=== PATIENT | male | born 2000 | race Caucasian/White ===

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

== ENCOUNTER 2018-01-28 06:15 | Emergency (ER) | payer BC ==
[2018-01-28] MEDS ORDERED: diphenhydrAMINE 50 MG CAP PO STA (08:09)
--- NOTE | 2018-01-28 08:27 | XR ---
Skull series HISTORY: Epistaxis, pain 2 views of the skull Bone mineralization is maintained. Paranasal sinuses are well aerated. No evident depressed skull fra cture. Impacted mandibular wisdom teeth noted. Orbits unremarkable as seen. IMPRESSION: Normal skull.
--- NOTE | 2018-01-28 08:28 | ED ---
General Adult HPI - General Chief complaint: ENT Stated complaint: nose bleed Time Seen by Provider: 01/28/18 07:37 Source: patient, family, RN notes reviewed, old records reviewed Mode of arrival: ambulatory Limitations: no limitations - History of Present Illness Initial comments: This is a 17-year-old male to the ER for evaluation. Patient presents to ER today for evaluation regarding nosebleed, patient believes he has bleeding of the brain. Patient suffers from psychosis. Mental health issues. Patient with long-standing mental health floor. Patient's father brings patient in for evaluation, is unclear why patient is in the emergency room, patient is complaining that he does have bleeding in his brain. Patient denies any headache currently. No nosebleed currently. No recent injury or trauma. - Related Data Previous Rx's Medication Instructions Recorded ARIPiprazole [Abilify] 15 mg PO DAILY #10 tab 12/01/17 Allergies Allergy/AdvReac Type Severity Reaction Status Date / Time No Known Allergies Allergy Verified 01/28/18 08:12 Review of Systems ROS Statement: Those systems with pertinent positive or pertinent negative responses have been documented in the HPI. ROS Other: All systems not noted in ROS Statement are negative. Past Medical History Past Medical History: Unable to Obtain History of Any Multi-Drug Resistant Organisms: None Reported Past Surgical History: Unable to Obtain Past Psychological History: No Psychological Hx Reported Smoking Status: Never smoker Past Alcohol Use History: None Reported Past Drug Use History: None Reported General Exam Limitations: no limitations General appearance: alert, in no apparent distress, anxious Head exam: Present: atraumatic, normocephalic, normal inspection Eye exam: Present: normal appearance, PERRL, EOMI. Absent: scleral icterus, conjunctival injection, periorbital swelling ENT exam: Present: normal exam, mucous membranes moist Neck exam: Present: normal inspection. Absent: tenderness, meningismus, lymphadenopathy Respiratory exam: Present: normal lung sounds bilaterally. Absent: respiratory distress, wheezes, rales, rhonchi, stridor Cardiovascular Exam: Present: regular rate, normal rhythm, normal heart sounds. Absent: systolic murmur, diastolic murmur, rubs, gallop, clicks GI/Abdominal exam: Present: soft, normal bowel sounds. Absent: distended, tenderness, guarding, rebound, rigid Extremities exam: Present: normal inspection, full ROM, normal capillary refill. Absent: tenderness, pedal edema, joint swelling, calf tenderness Back exam: Present: normal inspection Neurological exam: Present: alert, oriented X3, CN II-XII intact Psychiatric exam: Present: normal affect, normal mood Skin exam: Present: warm, dry, intact, normal color. Absent: rash Course Vital Signs 01/28/18 06:20 Temperature 98.6 F Pulse Rate 102 H Respiratory 20 Rate Blood Pressure 156/83 O2 Sat by Pulse 99 Oximetry - Reevaluation(s) Reevaluation #1: 01/28/18 08:27 Discussed with father goal for evaluation today, questions are answered and plan and treatment plan are discussed Medical Decision Making - Medical Decision Making 17-year-old male the ER for evaluation of nosebleed, no current nosebleed seen, patient also complaining of bleeding of the brain, patient and family reassured. Patient can be discharged home - Radiology Data Radiology results: report reviewed (Skull x-rays negative), image reviewed Disposition Clinical Impression: Paranoid delusion, Epistaxis Disposition: HOME SELF-CARE Condition: Good Instructions: Nosebleed (ED) Is patient prescribed a controlled substance at d/c from ED?: No Referrals: Felicity Sosa DO [Primary Care Provider] - 1-2 days
[2018-01-28 09:05] VITALS: BP 130/70; PULSE 78; RESP 16; TEMP 98.8
== END 2018-01-28 09:04 | disposition home or self-care (01) ==
LOC: EC 06:15
DX: F22 Delusional disorders (principal); R04.0 Epistaxis
CPT/HCPCS: 70250; 99284

== ENCOUNTER 2019-10-10 03:31 | Inpatient (IN) | payer BC ==
[2019-10-10 04:02] LABS: Basophils % (A) 0 %; Eosinophils # (A) 0.3 k/uL (0-0.7); Eosinophils % (A) 3 %; HCT 48.4 % (39.0-53.0); HGB 16.2 gm/dL (13.0-17.5); Lymphocytes # (A) 2.7 k/uL (1.0-4.8); Lymphocytes % (A) 26 %; MCHC 33.5 g/dL (31.0-37.0); MCV 92.4 fL (80.0-100.0); Mean Platelet Volume 7.3; Monocytes # (A) 0.5 k/uL (0-1.0); Monocytes % (A) 5 %; Neutrophils # (A) 6.9 k/uL (1.3-7.7); Neutrophils % (A) 66 %; Platelet Count 285 k/uL (150-450); RBC 5.24 m/uL (4.30-5.90); RDW 12.1 % (11.5-15.5); WBC 10.6 k/uL (3.8-10.6)
[2019-10-10 04:16] LABS: ALT 37 U/L (4-49); AST 34 U/L (17-59); Acetaminophen <10.0 ug/mL; African American GFR (CKD) >90 (>60 ml/min/1.73 sqM); Albumin 5.2 g/dL (3.5-5.0); Alkaline Phosphatase 56 U/L (38-126); Anion Gap 10 mmol/L; Blood Urea Nitrogen 17 mg/dL (9-20); Carbon Dioxide 26 mmol/L (22-30); Chloride 102 mmol/L (98-107); Glucose 93 mg/dL (74-99); Non-African American GFR(CKD) >90 (>60 ml/min/1.73 sqM); Potassium 3.6 mmol/L (3.5-5.1); Salicylate <1.0 mg/dL; Sodium 138 mmol/L (137-145); Total Bilirubin 0.5 mg/dL (0.2-1.3); Total Protein 8.1 g/dL (6.3-8.2)
[2019-10-10] MEDS ORDERED: NICOTINE 14MG/24HR PATCH TRANSDERM STA (05:21)
--- NOTE | 2019-10-10 05:28 | ED ---
General Adult HPI - General Chief complaint: Anxiety Stated complaint: Anxiety Time Seen by Provider: 10/10/19 03:41 Source: patient, EMS Mode of arrival: EMS Limitations: altered mental status (Psychiatric illness) - History of Present Illness Initial comments: Luciano is a 19 yo male with a psychiatric history who presents to the ER today via EMS reporting that he is experiencing brain trauma. Patient states that he can't explain. Patient states that he is having severe brain trauma denies any head injury or headache. - Related Data Previous Rx's Medication Instructions Recorded ARIPiprazole [Abilify] 15 mg PO DAILY #10 tab 12/01/17 Allergies Allergy/AdvReac Type Severity Reaction Status Date / Time No Known Allergies Allergy Verified 01/28/18 08:12 Review of Systems ROS Statement: Those systems with pertinent positive or pertinent negative responses have been documented in the HPI. ROS Other: All systems not noted in ROS Statement are negative. Past Medical History Past Medical History: Unable to Obtain History of Any Multi-Drug Resistant Organisms: None Reported Past Surgical History: Unable to Obtain Past Psychological History: Unable to Obtain Smoking Status: Never smoker Past Alcohol Use History: None Reported Past Drug Use History: None Reported General Exam - General Exam Comments Initial Comments: Physical Exam GENERAL: Patient is well-developed and well-nourished. Patient is nontoxic and well-hydrated and is in no distress. HENT: Normocephalic, Atraumatic. EYES: PERRL, EOMI PULMONARY: Unlabored respirations. CARDIOVASCULAR: RRR Warm and well perfused extremities ABDOMEN: Non-distended SKIN: No rashes or bruising : Deferred NEUROLOGIC: Alert and oriented Normal speech Normal gait MUSCULOSKELETAL: Moving all extremities with no apparent injury PSYCHIATRIC: Appears paranoid, appears to be reacting to internal stimuli, exhibiting thought blocking Limitations: no limitations Course Vital Signs 10/10/19 03:32 Temperature 96.7 F L Pulse Rate 93 Respiratory 18 Rate Blood Pressure 129/91 O2 Sat by Pulse 99 Oximetry Medical Decision Making - Medical Decision Making The patient was seen and evaluated history was obtained from EMS and the patient EMS reports the PD was on scene when the patient called 911 asking for help, PD seemed to be familiar with the patient and reported that he seemed off from his baseline Patient was calm and cooperative but seemed paranoid, history was limited by patient's psychiatric illness Physical exam unremarkable Patient was medically cleared for evaluation by EPS who were able to evaluated bedside. Patient was petitioned by the EPS nurse, I completed a psychiatric certification patient will be admitted the [facility] - Lab Data Result diagrams: 10/10/19 03:54 10/10/19 03:54 Lab Results 10/10/19 10/10/19 Range/Units 03:54 03:54 WBC 10.6 (3.8-10.6) k/uL RBC 5.24 (4.30-5.90) m/uL Hgb 16.2 (13.0-17.5) gm/dL Hct 48.4 (39.0-53.0) % MCV 92.4 (80.0-100.0) fL MCH 31.0 (25.0-35.0) pg MCHC 33.5 (31.0-37.0) g/dL RDW 12.1 (11.5-15.5) % Plt Count 285 (150-450) k/uL Neutrophils % 66 % Lymphocytes % 26 % Monocytes % 5 % Eosinophils % 3 % Basophils % 0 % Neutrophils # 6.9 (1.3-7.7) k/uL Lymphocytes # 2.7 (1.0-4.8) k/uL Monocytes # 0.5 (0-1.0) k/uL Eosinophils # 0.3 (0-0.7) k/uL Basophils # 0.0 (0-0.2) k/uL Sodium 138 (137-145) mmol/L Potassium 3.6 (3.5-5.1) mmol/L Chloride 102 (98-107) mmol/L Carbon Dioxide 26 (22-30) mmol/L Anion Gap 10 mmol/L BUN 17 (9-20) mg/dL Creatinine 0.81 (0.66-1.25) mg/dL Est GFR (CKD-EPI)AfAm >90 (>60 ml/min/1.73 sqM) Est GFR (CKD-EPI)NonAf >90 (>60 ml/min/1.73 sqM) Glucose 93 (74-99) mg/dL Calcium 10.0 (8.4-10.2) mg/dL Total Bilirubin 0.5 (0.2-1.3) mg/dL AST 34 (17-59) U/L ALT 37 (4-49) U/L Alkaline Phosphatase 56 (38-126) U/L Total Protein 8.1 (6.3-8.2) g/dL Albumin 5.2 H (3.5-5.0) g/dL Salicylates <1.0 mg/dL Acetaminophen <10.0 ug/mL Disposition Clinical Impression: Paranoid delusion Disposition: TRANSFER TO PSYCH HOSP/UNIT Condition: Serious Is patient prescribed a controlled substance at d/c from ED?: No Referrals: Felicity Sosa DO [Primary Care Provider] - 1-2 days
[2019-10-10] MEDS ORDERED: LORazepam 1 MG TAB PO PRN (05:44)
[2019-10-10] MEDS ORDERED: MAG HYDROX/AL HYDROX/SIMETH 30 ML CUP PO PRN (05:44)
[2019-10-10] MEDS ORDERED: ZIPRASIDONE 20 MG VIAL IM PRN (05:44)
[2019-10-10] MEDS ORDERED: ACETAMINOPHEN TAB 325 MG TAB PO PRN (05:44)
[2019-10-10] MEDS ORDERED: MAGNESIUM HYDROXIDE 2,400 MG/10 ML CUP PO PRN (05:44)
[2019-10-10] MEDS: NICOTINE 21MG/24HR PATCH TRANSDERM SCH (07:42)
[2019-10-10 08:07] LABS: Cholesterol 167 mg/dL (<200); HDL Cholesterol 42 mg/dL (40-60); LDL Cholesterol,Calculated 100 mg/dL (0-99); Triglycerides 123 mg/dL (<150)
[2019-10-10 08:11] LABS: Bilirubin,Unconjugated 0.5 mg/dL (0.0-1.1)
--- NOTE | 2019-10-10 12:02 | CT ---
EXAMINATION TYPE: CT brain wo con DATE OF EXAM: 10/10/2019 COMPARISON: NONE HISTORY: Fall, headache. CT DLP: 1047.4 mGycm. Automated Exposure Control for Dose Reduction was Utilized. TECHNIQUE: CT scan of the head is performed without contrast. FINDINGS: There is no acute intracranial hemorrhage, mass effect, or midline shift identified. The ventricles and sulci are within normal limits in size. The globes are intact. 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 Remaining visualized paranasal sinuses an d mastoid air cells are well aerated although the left mastoid air cells are aplastic. IMPRESSION: No acute intracranial hemorrhage, mass effect, or midline shift is seen.
[2019-10-10] MEDS: ARIPiprazole 15 MG TAB PO SCH (12:18)
--- NOTE | 2019-10-10 13:29 | P.HP ---
Psychiatric H&P - . H&P Date: 10/10/19 History & Physical: Allergies Allergy/AdvReac Type Severity Reaction Status Date / Time No Known Allergies Allergy Verified 01/28/18 08:12 Vital Signs Temp 97.3 F L 10/10/19 06:45 Pulse 91 10/10/19 06:45 Resp 18 10/10/19 06:45 BP 136/91 10/10/19 06:45 Pulse Ox 99 10/10/19 06:45 Intake & Output 10/09/19 10/10/19 10/10/19 18:59 06:59 18:59 Weight 64.093 kg Laboratory Last Values WBC 10.6 k/uL (3.8-10.6) 10/10/19 03:54 RBC 5.24 m/uL (4.30-5.90) 10/10/19 03:54 Hgb 16.2 gm/dL (13.0-17.5) 10/10/19 03:54 Hct 48.4 % (39.0-53.0) 10/10/19 03:54 MCV 92.4 fL (80.0-100.0) 10/10/19 03:54 MCH 31.0 pg (25.0-35.0) 10/10/19 03:54 MCHC 33.5 g/dL (31.0-37.0) 10/10/19 03:54 RDW 12.1 % (11.5-15.5) 10/10/19 03:54 Plt Count 285 k/uL (150-450) 10/10/19 03:54 Neutrophils % 66 % 10/10/19 03:54 Lymphocytes % 26 % 10/10/19 03:54 Monocytes % 5 % 10/10/19 03:54 Eosinophils % 3 % 10/10/19 03:54 Basophils % 0 % 10/10/19 03:54 Neutrophils # 6.9 k/uL (1.3-7.7) 10/10/19 03:54 Lymphocytes # 2.7 k/uL (1.0-4.8) 10/10/19 03:54 Monocytes # 0.5 k/uL (0-1.0) 10/10/19 03:54 Eosinophils # 0.3 k/uL (0-0.7) 10/10/19 03:54 Basophils # 0.0 k/uL (0-0.2) 10/10/19 03:54 Sodium 138 mmol/L (137-145) 10/10/19 03:54 Potassium 3.6 mmol/L (3.5-5.1) 10/10/19 03:54 Chloride 102 mmol/L (98-107) 10/10/19 03:54 Carbon Dioxide 26 mmol/L (22-30) 10/10/19 03:54 Anion Gap 10 mmol/L 10/10/19 03:54 BUN 17 mg/dL (9-20) 10/10/19 03:54 Creatinine 0.81 mg/dL (0.66-1.25) 10/10/19 03:54 Est GFR (CKD-EPI)AfAm >90 (>60 ml/min/1.73 sqM) 10/10/19 03:54 Est GFR (CKD-EPI)NonAf >90 (>60 ml/min/1.73 sqM) 10/10/19 03:54 Glucose 93 mg/dL (74-99) 10/10/19 03:54 Calcium 10.0 mg/dL (8.4-10.2) 10/10/19 03:54 Total Bilirubin 0.5 mg/dL (0.2-1.3) 10/10/19 03:54 Conjugated Bilirubin 0.0 mg/dL (0.0-0.3) 10/10/19 03:54 Unconjugated Bilirubin 0.5 mg/dL (0.0-1.1) 10/10/19 03:54 Delta Bilirubin 0.0 mg/dL (0.0-0.2) 10/10/19 03:54 AST 34 U/L (17-59) 10/10/19 03:54 ALT 37 U/L (4-49) 10/10/19 03:54 Alkaline Phosphatase 56 U/L (38-126) 10/10/19 03:54 Total Protein 8.1 g/dL (6.3-8.2) 10/10/19 03:54 Albumin 5.2 g/dL (3.5-5.0) H 10/10/19 03:54 Triglycerides 123 mg/dL (<150) 10/10/19 03:54 Cholesterol 167 mg/dL (<200) 10/10/19 03:54 LDL Cholesterol, Calc 100 mg/dL (0-99) H 10/10/19 03:54 HDL Cholesterol 42 mg/dL (40-60) 10/10/19 03:54 TSH 2.510 mIU/L (0.465-4.680) 10/10/19 03:54 Salicylates <1.0 mg/dL 10/10/19 03:54 Acetaminophen <10.0 ug/mL 10/10/19 03:54 10/10/19 12:16 IDENTIFYING DATA: Patient is a 19-year-old male who currently lives with his parents and brother and is currently unemployed. HPI: Patient presented to the hospital yesterday via EMS after patient called 911 asking for help. According to ER report patient was claiming that he was experienced "brain trauma". Patient was evaluated by EPS and patient was admitted to the mental health unit as he has a significant history for mental illness and was acting bizarre. Patient was seen by senior copywriter this morning who appeared to be disheveled and claimed that he was feeling anxious however now states that he is "doing better". Patient claims that he suffered from "brain trauma" yesterday as he was going outside to smoke a cigarette and hit his head on the concrete after he tripped. Patient denied any loss of consciousness no changes at all in his mental status and denies any nausea or vomiting or any diplopia. Patient received a CT brain scan this morning. He states that his mood is "okay" and denies any depression at this time. He states that he has been taking Abilify 15 mg daily at home which has been prescribed by his primary care physician. He appeared to be concrete and had a poverty of content. Patient denied any problems with sleep or appetite. He denies any stressors at home or in his personal life. Patient denies any suicidal or homicidal ideations intent or plan. At this time patient denies any auditory or visual hallucinations. Patient denies any flight of ideas racing thoughts and increased in goal directed behavior. Patient admits to using cigarettes daily however denies any alcohol or any other recreational drug use. PAST PSYCHIATRIC HISTORY: Patient states that he has a history of psychosis and has been admitted to the mental health unit back in 11/2017 for one month. Patient was placed on Abilify 15 mg at that time and was given an Abilify Maintenna long-acting injection prior to discharge. Patient was lost to follow- up with [facility] however now receives his Abilify by mouth medications from his primary care physician. He denies any history of suicide attempts in the past. PMH:denies ALLERGIES: as per EMR CHEMICAL DEPENDENCY HISTORY: as per HPI FAMILY PSYCHIATRIC/SUBSTANCE USE HISTORY: Patient's mother has schizophrenia. SOCIAL HISTORY: Patient was born and raised in [facility] and claims to have finished high school and is in college at this time at [employer]. Patient states that he is studying math. He claims to be unemployed and living with his parents and brother. MENTAL STATUS EXAM: General Appearance: Patient appears to be stated age is alert, directable, concrete. Patient appears to have poor hygiene and grooming. Wearing hospital gown. Behavior: Patient is seated without any agitated behavior. Attempts to cooperate. Speech: Patient's speech is fluent and nonpressured. Mood/Affect: Patient reports their mood is "okay", affect is congruent and blunted affect. Suicidality/Homicidality: Patient denies having any homicidal ideation intent or plan. Denies any suicidal ideations intent or plan Perceptions: Patient denies any visual hallucinations and denies any auditory hallucinations Though content/process: There is no evidence of any delusional thought content and thought process is linear and goal-directed. Memory and concentration: AOX3, grossly intact for the purposes of this session. Can spell "WORLD" backwards Judgment and insight: poor STRENGTHS/WEAKNESSES: strength is that patient is resilient. Weakness is that patient has poor judgment INTELLECT: average IMPRESSIONS: Schizophrenia Nicotine dependence PLAN: -Patient is admitted under voluntary status to MHU for stabilization of psychia tric symptoms and safety. Patient signed adult voluntary form and medication consent and is placed in patient's chart. -Medications : Will start patient on Abilify 15 mg daily for psychosis. Patient also started on trazodone 50 mg daily at bedtime for insomnia/mood. -Ativan and Geodon PRN for agitation/aggression -Patient was informed of the risks, benefits and side effects of the medication and patient verbally consented to taking the medications. Patient signed med consent form and was placed in chart. -Internal Medicine consult to perform medical evaluation and physical. -NRT - nicotine patch -SW on board for discharge planning. Encourage patient to participate in groups to work on coping skills. 10/10/19 13:23
[2019-10-10 14:45] LABS: Hemoglobin A1C 5.1 % (4.0-6.0)
[2019-10-10] MEDS: traZODone HCL 50 MG TAB PO SCH (21:33)
[2019-10-11] MEDS: ALBUTEROL INHALER 60 PUFF/8 GM INHALER (BULK) INHALATION PRN (04:47)
[2019-10-11] MEDS: NICOTINE 21MG/24HR PATCH TRANSDERM SCH (08:38)
[2019-10-11] MEDS: ARIPiprazole 15 MG TAB PO SCH (08:38)
--- NOTE | 2019-10-11 11:14 | P.PN ---
Progress Note - Text Progress Note Date: 10/11/19 Interval History: Patient was seen wandering the hallways and was directable and agreeable to sp fallon with song writer in the office. Patient appeared to be more cooperative today and states that his mood is doing "good" today. He states that he spoke with his father yesterday and did not have any problems with the phone call. He states that he is more optimistic about the future and has been going to groups and states that "they're helping me out a lot". Patient states that he slept well last night on the trazodone and thanked song writer for it. He denied any depressive symptoms today and denies any anxiety. He states that he has been taking his medications and denies any side effects at this time. He states that he has fair energy and appetite. Patient appears to have improving insight and judgment. At this time patient denies any suicidal or homical ideations, intent or plan. Patient denies any auditory, visual hallucinations and denies any paranoia or delusions. Mental Status Exam: General Appearance: Patient appears to be stated age is alert, directable, concrete and attempts to cooperate. Patient appears to have improving hygiene and grooming. Wearing hospital gown. Behavior: Patient is seated without any agitated behavior. Attempts to cooperate. Speech: Patient's speech is fluent and nonpressured. Mood/Affect: Patient reports their mood is "better", affect is congruent and constricted affect. Suicidality/Homicidality: Patient denies having any homicidal ideation intent or plan. Denies any suicidal ideations intent or plan Perceptions: Patient denies any visual hallucinations and denies any auditory hallucinations Though content/process: There is no evidence of any delusional thought content and thought process is linear and goal-directed. [place]. Memory and concentration: AOX3, grossly intact for the purposes of this session. Can spell "WORLD" backwards Judgment and insight: Mildly improving. Assessment Schizophrenia Nicotine dependence Plan: -Patient continues to meet criteria for inpatient psychiatric admission for symptom stabilization and safety. Patient has signed adult voluntary form and medication consent and was placed in patient's chart. -Medications: Continue with Abilify 15 mg daily for psychosis. Continue with trazodone 50 mg daily at bedtime for insomnia/mood. -When necessary Ativan and Geodon for agitation/aggression. -NRT - nicotine patch -SW on board for discharge planning. Encouraged the patient to participate in milieu. welfare case worker to speak with patient's father today and arrange for possible discharge back home tomorrow.
--- NOTE | 2019-10-11 16:51 | P.PN ---
Progress Note - Text Patient of Dr DANIEL SOSA Please change the medical consult to Dr Clay Sosa Remove from Dr Ramez Strickland list
[2019-10-11] MEDS: traZODone HCL 50 MG TAB PO SCH (20:07)
[2019-10-12 07:08] VITALS: BP 114/67; PULSE 88; RESP 20; TEMP 97.3
[2019-10-12] MEDS: ALBUTEROL INHALER 60 PUFF/8 GM INHALER (BULK) INHALATION PRN (07:34)
[2019-10-12] MEDS: ARIPiprazole 15 MG TAB PO SCH (07:35)
[2019-10-12] MEDS: NICOTINE 21MG/24HR PATCH TRANSDERM SCH (07:35)
--- NOTE | 2019-10-12 09:48 | P.DS ---
Providers Date of admission: 10/10/19 05:41 Expected date of discharge: 10/12/19 Attending physician: Elpidio Deleon MD Consults: 10/12/19 02:02 Consult Physician Routine Consulting Provider: Clay Sosa Consult Reason/Comments: H and P with medical follow Do you want consulting provider notified?: Yes, Notify in am Primary care physician: Felicity Sosa - Discharge Diagnosis(es) (1) Schizophrenia Current Visit: Yes Status: Acute Priority: High (2) Nicotine dependence Current Visit: Yes Status: Acute Priority: Low Hospital Course: Admission HPI: Patient is a 19-year-old male who currently lives with his parents and brother and is currently unemployed. Patient presented to the hospital yesterday via EMS after patient called 911 asking for help. According to ER report patient was claiming that he was experienced "brain trauma". Patient was evaluated by EPS and patient was admitted to the mental health unit as he has a significant history for mental illness and was acting bizarre. Patient was seen by magnetic tape typewriter operator this morning who appeared to be disheveled and claimed that he was feeling anxious however now states that he is "doing better". Patient claims that he suffered from "brain trauma" yesterday as he was going outside to smoke a cigarette and hit his head on the concrete after he tripped. Patient denied any loss of consciousness no changes at all in his mental status and denies any nausea or vomiting or any diplopia. Patient received a CT brain scan this morning. He states that his mood is "okay" and denies any depression at this time. He states that he has been taking Abilify 15 mg daily at home which has been prescribed by his primary care physician. He appeared to be concrete and had a poverty of content. Patient denied any problems with sleep or appetite. He denies any stressors at home or in his personal life. Patient denies any suicidal or homicidal ideations intent or plan. At this time patient denies any auditory or visual hallucinations. Patient denies any flight of ideas racing thoughts and increased in goal directed behavior. Patient admits to using cigarettes daily however denies any alcohol or any other recreational drug use. Hospital course: Upon admission to the unit patient was initially confused and bizarre however was directable and agreeable to commence treatment. Patient got along well with other patients on the unit and followed unit protocol. Patient mainly isolated himself to his room during the day throughout the hospitalization. Patient was compliant with the medications and denied any side effects throughout hospital course. Patient was re-started on Abilify by mouth 15 mg daily for mood stabilization/psychosis. Patient was also started on trazodone 50 mg daily at bedtime for sleep/mood. Patient spoke of his stressors and engaged in therapy both group and individual. Patient was also seen by medical team for history and physical exam. Patient received a head computed tomography scan for reported history of a fall and head trauma without any loss of consciousness and CT was negative for any fractures, changes or intracranial hemorrhages. Throughout the course of the hospitalization patient gradually improved with regards to mood, confusion/behaviors, sleep and became future oriented with improved insight and judgment. On the day of discharge patient denied any suicidal or homicidal ideations intent or plan denied any auditory or visual hallucinations. Patient endorsed wanting to live for his health and his future. The patient denied any access to guns or weapons. Patient denied any paranoia and did not endorse any delusions. Patient does not have a significant history of substance abuse however was counseled on abstaining from all substances inclu ding alcohol and marijuana. Patient was also counseled on the medications and need for regular compliance and was encouraged to follow-up with their outpatient appointment for mental health and also for primary care. Prior to discharge a family meeting will be arranged by social professionals to answer any questions and ensure safety upon discharge. Mental status exam: General Appearance: Patient appears to be stated age is alert, pleasant, and attempts to be cooperative. Patient is in no acute distress and has improved hygiene and grooming Behavior: Patient is calmly seated without any agitated behavior. Speech: Patient's speech is fluent and nonpressured. Mood/Affect: Patient reports their mood is "ok", affect is congruent and euthymic. Suicidality/Homicidality: Patient denies having any suicidal or homicidal ideation intent or plan. Perceptions: Patient denies any auditory or visual hallucinations. Though content/process: There is no evidence of any delusional thought content and thought process is linear and goal-directed. [place]. Memory and concentration: AOX3, grossly intact for the purposes of this session. Can spell "WORLD" backwards correctly. Judgment and insight: improved with guarded prognosis Impression: Schizophrenia Nicotine dependence Plan: -Continue with discharge today as patient has improved and stabilized psychiatrically and is not currently an imminent threat to himself and/or others. -Continue medications: Abilify by mouth 50 mg daily for mood stabilization/psychosis, trazodone 50 mg daily at bedtime for insomnia/mood. -Patient was counseled on the need for medication compliance and appropriate follow-up at mental health and also primary care for medical issues. Patient verbalized understanding and agreed. -Social work to arrange for and conduct family meeting to ensure safety upon discharge and answer any questions/concerns. Social work also to arrange for patients follow up appointments for psychiatric care along with follow up with primary care provider. -Patient counseled on abstaining from recreational drugs and marijuana and alcohol. Was informed/educated on the adverse effects on their physical and mental health. Patient verbally agreed and understood. -Patient was instructed to return to the hospital or seek immediate medical care if their psychiatric or medical symptoms do worsen or reoccur. Allergies Allergy/AdvReac Type Severity Reaction Status Date / Time No Known Allergies Allergy Verified 01/28/18 08:12 Laboratory Results WBC 10.6 k/uL (3.8-10.6) 10/10/19 03:54 RBC 5.24 m/uL (4.30-5.90) 10/10/19 03:54 Hgb 16.2 gm/dL (13.0-17.5) 10/10/19 03:54 Hct 48.4 % (39.0-53.0) 10/10/19 03:54 MCV 92.4 fL (80.0-100.0) 10/10/19 03:54 MCH 31.0 pg (25.0-35.0) 10/10/19 03:54 MCHC 33.5 g/dL (31.0-37.0) 10/10/19 03:54 RDW 12.1 % (11.5-15.5) 10/10/19 03:54 Plt Count 285 k/uL (150-450) 10/10/19 03:54 Neutrophils % 66 % 10/10/19 03:54 Lymphocytes % 26 % 10/10/19 03:54 Monocytes % 5 % 10/10/19 03:54 Eosinophils % 3 % 10/10/19 03:54 Basophils % 0 % 10/10/19 03:54 Neutrophils # 6.9 k/uL (1.3-7.7) 10/10/19 03:54 Lymphocytes # 2.7 k/uL (1.0-4.8) 10/10/19 03:54 Monocytes # 0.5 k/uL (0-1.0) 10/10/19 03:54 Eosinophils # 0.3 k/uL (0-0.7) 10/10/19 03:54 Basophils # 0.0 k/uL (0-0.2) 10/10/19 03:54 Sodium 138 mmol/L (137-145) 10/10/19 03:54 Potassium 3.6 mmol/L (3.5-5.1) 10/10/19 03:54 Chloride 102 mmol/L (98-107) 10/10/19 03:54 Carbon Dioxide 26 mmol/L (22-30) 10/10/19 03:54 Anion Gap 10 mmol/L 10/10/19 03:54 BUN 17 mg/dL (9-20) 10/10/19 03:54 Creatinine 0.81 mg/dL (0.66-1.25) 10/10/19 03:54 Est GFR (CKD-EPI)AfAm >90 (>60 ml/min/1.73 sqM) 10/10/19 03:54 Est GFR (CKD-EPI)NonAf >90 (>60 ml/min/1.73 sqM) 10/10/19 03:54 Glucose 93 mg/dL (74-99) 10/10/19 03:[address] Glu mg/dL 100 10/10/19 03:54 Hemoglobin A1c 5.1 % (4.0-6.0) 10/10/19 03:54 Calcium 10.0 mg/dL (8.4-10.2) 10/10/19 03:54 Total Bilirubin 0.5 mg/dL (0.2-1.3) 10/10/19 03:54 Conjugated Bilirubin 0.0 mg/dL (0.0-0.3) 10/10/19 03:54 Unconjugated Bilirubin 0.5 mg/dL (0.0-1.1) 10/10/19 03:54 Delta Bilirubin 0.0 mg/dL (0.0-0.2) 10/10/19 03:54 AST 34 U/L (17-59) 10/10/19 03:54 ALT 37 U/L (4-49) 10/10/19 03:54 Alkaline Phosphatase 56 U/L (38-126) 10/10/19 03:54 Total Protein 8.1 g/dL (6.3-8.2) 10/10/19 03:54 Albumin 5.2 g/dL (3.5-5.0) H 10/10/19 03:54 Triglycerides 123 mg/dL (<150) 10/10/19 03:54 Cholesterol 167 mg/dL (<200) 10/10/19 03:54 LDL Cholesterol, Calc 100 mg/dL (0-99) H 10/10/19 03:54 HDL Cholesterol 42 mg/dL (40-60) 10/10/19 03:54 TSH 2.510 mIU/L (0.465-4.680) 10/10/19 03:54 Salicylates <1.0 mg/dL 10/10/19 03:54 Acetaminophen <10.0 ug/mL 10/10/19 03:54 Vital Signs Temp 97.3 F L 10/12/19 07:07 Pulse 88 10/12/19 07:07 Resp 20 10/12/19 07:07 BP 114/67 10/12/19 07:07 Pulse Ox 95 10/12/19 07:07 Patient Condition at Discharge: Stable Plan - Discharge Summary New Discharge Prescriptions: New ARIPiprazole [Abilify] 15 mg PO DAILY #30 tab traZODone HCL [Desyrel] 50 mg PO HS 30 Days tab Nicotine 21Mg/24Hr Patch [Habitrol] 1 patch TRANSDERM DAILY 14 Days patch Albuterol Inhaler [Ventolin Hfa Inhaler] 2 puff INHALATION RT-QID PRN #1 puff PRN Reason: Shortness Of Breath Or Wheezing Discontinued ARIPiprazole [Abilify] 15 mg PO DAILY #10 tab Discharge Medication List ARIPiprazole [Abilify] 15 mg PO DAILY #30 tab 10/12/19 [Rx] Albuterol Inhaler [Ventolin Hfa Inhaler] 2 puff INHALATION RT-QID PRN #1 puff 10/12/19 [Rx] Nicotine 21Mg/24Hr Patch [Habitrol] 1 patch TRANSDERM DAILY 14 Days patch 10/12/19 [Rx] traZODone HCL [Desyrel] 50 mg PO HS 30 Days tab 10/12/19 [Rx] Follow up Appointment(s)/Referral(s): Felicity Sosa DO [Primary Care Provider] - 1-2 days Activity/Diet/Wound Care/Special Instructions: Activity and diet as tolerated. Avoid the use of street drugs and alcohol. Take all medications as prescribed. When you are in need of refills on your medications please contact your medical provider and/or outpatient psychiatrist to have this done. Please go to scheduled outpatient appointment for aftercare treatment. If symptoms return or become worse, call the crisis line at and/or go to the nearest emergency room for evaluation. Discharge Disposition: HOME SELF-CARE
--- NOTE | 2019-10-13 22:21 | P.CONS ---
History of Present Illness - Reason for Consult Consult date: 10/11/19 medical eval - Chief Complaint AMS - History of Present Illness Luciano Moreno is a 19 yo M with PMH of schizophrenia on , who presented to the ED via EMS with altered mental status, psychosis and agitation. He states he was outside smoking a cigarette when he tripped and hit his head on concrete. He denies any cuts or bruising but complains of a headache since that time. He denies any loss of consciousness. He called EMS and was brought in. In the ED he complained about his 'head trauma' as well as significant anxiety dealing with everything. He is seen today on the mental health floor, alert and oriented although concrete reasoning and limited insight into what brought him in. Review of Systems All systems: negative Constitutional: Denies chills, Denies fever Eyes: denies blurred vision, denies pain Ears, nose, mouth and throat: Denies headache, Denies sore throat Cardiovascular: Denies chest pain, Denies shortness of breath Respiratory: Denies cough Gastrointestinal: Denies abdominal pain, Denies diarrhea, Denies nausea, Denies vomiting Musculoskeletal: Denies myalgias Integumentary: Denies pruritus, Denies rash Neurological: Denies numbness, Denies weakness Psychiatric: Reports as per HPI, Reports anxiety, Reports change in sleep habits, Reports difficulty concentrating, Reports sleep disturbances, Denies depression, Denies hallucinations, Denies suicidal ideation Endocrine: Denies fatigue, Denies weight change Past Medical History Past Medical History: Unable to Obtain History of Any Multi-Drug Resistant Organisms: None Reported Past Surgical History: Unable to Obtain Past Psychological History: Unable to Obtain Smoking Status: Never smoker Past Alcohol Use History: None Reported Past Drug Use History: None Reported Medications and Allergies Home Medications Medication Instructions Recorded Confirmed Type ARIPiprazole [Abilify] 15 mg PO DAILY #30 tab 10/12/19 Rx Albuterol Inhaler (Bulk) [Ventolin 2 puff INHALATION RT-QID PRN #1 10/12/19 Rx Hfa Inhaler (Bulk)] puff Nicotine 21Mg/24Hr Patch [Habitrol] 1 patch TRANSDERM DAILY 14 Days 10/12/19 Rx patch traZODone HCL [Desyrel] 50 mg PO HS 30 Days tab 10/12/19 Rx Allergies Allergy/AdvReac Type Severity Reaction Status Date / Time No Known Allergies Allergy Verified 01/28/18 08:12 Physical Exam Vitals: Vital Signs Temp Pulse Resp BP Pulse Ox 10/12/19 07:07 97.3 F L 88 20 114/67 95 10/11/19 18:30 98.0 F General: well nourished, well developed, NAD. Vitals reviewed Eyes: PERRL, EOMI, conjunctiva normal HENT: normocephalic, mucus membranes moist Neck: supple, no JVD Lungs: normal respiratory effort, no wheezes or rales CV: Regular rate and rhythm, no murmur. Peripheral pulses 2+ Abdomen: soft, nondistended, no organomegaly Lymph: no cervical or axillary LAD Skin: warm and dry. Neuro: A&Ox3. Anxious mood, flat affect Results CBC & Chem 7: 10/10/19 03:54 10/10/19 03:54 Assessment and Plan (1) Paranoid delusion Status: Acute Code(s): F22 - DELUSIONAL DISORDERS SNOMED Code(s): 284201645 (2) Schizophrenia Status: Acute Priority: High Code(s): F20.9 - SCHIZOPHRENIA, UNSPECIFIED SNOMED Code(s): 49046614 Plan: 1. Altered mental status. Concern for head trauma. CT head ordered and negative. Suspect his anxiety about head trauma is a feature of his thought disorder. Continue management per psychiatry
== END 2019-10-12 12:28 | disposition home or self-care (01) | DRG 885 ==
LOC: EC 03:31 → 3MHU 05:41
PROVIDERS: ADMIT Psychiatry & Neurology Psychiatry; ATTEND Psychiatry & Neurology Psychiatry
DX: F20.9 Schizophrenia, unspecified (principal); F41.9 Anxiety disorder, unspecified; G47.00 Insomnia, unspecified; S09.90XA Unspecified injury of head, initial encounter; F17.210 Nicotine dependence, cigarettes, uncomplicated; Z71.6 Tobacco abuse counseling; Z79.899 Other long term (current) drug therapy; W22.09XA Striking against other stationary object, initial encounter; Z81.8 Family history of other mental and behavioral disorders
CPT/HCPCS: 36415; 70450; 80053; 80061; 80329; 82075; 82248; 83036; 83520; 84443; 85025; 99285